=== PATIENT | male | born 1990 | race Caucasian/White ===

== ENCOUNTER 2019-05-25 10:43 | Outpatient (CLI) | payer OTHER | END 2019-05-25 11:30 | disposition home or self-care (01) | LOC: TOM 10:43 | DX: H10.012 Acute follicular conjunctivitis, left eye (principal); K50.10 Crohn's disease of large intestine without complications; D21.0 Benign neoplasm of connective and other soft tissue of head, face and neck; V17.5XXA Pedal cycle passenger injured in collision with fixed or stationary object in traffic accident, initial encounter ==

== ENCOUNTER 2024-02-06 05:18 | Day surgery (SDC) | payer BC ==
[~2024-02-06 05:18] MED LIST: PREDNISONE 30 MG
[2024-02-06] MEDS ORDERED: CEFTRIAXONE SODIUM 2,000 MG VIAL IV ONE (10:00)
[2024-02-06] MEDS ORDERED: POVIDONE-IODINE 118 ML BOTT TOP ONE (10:00)
[2024-02-06] MEDS ORDERED: HEMOSTATIC MATRIX 1 KIT KIT TOP ONE (10:00)
[2024-02-06] MEDS ORDERED: DIBUCAINE 30 GM TUBE RECTAL ONE (10:00)
[2024-02-06] MEDS ORDERED: METRONIDAZOLE/SODIUM CHLORIDE 500 MG/100 ML PIGGYBACK IV ONE (10:00)
[2024-02-06] MEDS ORDERED: HYDROCORTISONE SODIUM SUCC/PF 100 MG VIAL IV ONE (10:15)
[2024-02-06] MEDS ORDERED: TRAM1TAB98 PO (10:51)
== END 2024-02-06 13:50 | disposition home or self-care (01) ==
LOC: CIR.AMB 05:18
PROVIDERS: ATTEND Surgery
DX: K62.4 Stenosis of anus and rectum (principal); K50.812 Crohn's disease of both small and large intestine with intestinal obstruction; K50.814 Crohn's disease of both small and large intestine with abscess; K56.600 Partial intestinal obstruction, unspecified as to cause